=== PATIENT | male | born 1995 | race Caucasian/White ===

== ENCOUNTER 2023-10-16 00:04 | Day surgery (SDC) | payer BC, OTHER ==
[2023-10-16] MEDS: Sodium Chloride 0.9% 1,000 ML IV STA (00:45)
[2023-10-16] MEDS: Sodium Chloride 0.9% 10 ML Syringe FLUSH PRN (00:46)
[2023-10-16 00:49] LABS: BASOPHILS PERCENT AUTO 0.5 % (0.0-1.0); EOSINOPHILS PERCENT AUTO 0.5 % (0.0-6.0); HEMATOCRIT 45.5 % (42.0-52.0); IMMATURE GRAN ABSOLUTE AUTO 0.01 K/mm3 (0.00-0.05); IMMATURE GRAN PERCENT AUTO 0.1 % (0.0-0.4); LYMPHOCYTES ABSOLUTE AUTO 0.8 K/mm3 (1.0-4.8); LYMPHOCYTES PERCENT AUTO 9.3 % (24.0-44.0); MEAN CORPUSCULAR HGB CONC 35.2 g/dl (32.0-36.0); MEAN CORPUSCULAR VOLUME 88.2 fl (83.0-99.0); MEAN PLATELET VOLUME 8.9 fl (9.4-12.4); MONOCYTES ABSOLUTE AUTO 0.6 K/mm3 (0.0-0.8); MONOCYTES PERCENT AUTO 7.3 % (0.0-8.0); NEUTROPHILS ABSOLUTE AUTO 6.8 K/mm3 (1.8-7.7); NEUTROPHILS PERCENT AUTO 82.3 % (41.0-71.0); PLATELET COUNT,PLT 155 K/mm3 (150-400); RED BLOOD CELL COUNT 5.16 M/mm3 (4.52-5.90); WHITE BLOOD CELL COUNT,WBC 8.24 K/mm3 (3.9-11.3)
[2023-10-16] MEDS: Sodium Chloride 0.9% 10 ML Syringe FLUSH ONE (01:01)
[2023-10-16] MEDS: Iopamidol 612 MG/ML 100 ML Bottle IVPUSH ONE (01:01)
[2023-10-16 01:10] LABS: A/G RATIO 1.2 (1-2); ANION GAP 13.4 (5-15); BILIRUBIN TOTAL 0.8 mg/dL (0.2-1.0); BUN/CREATININE RATIO 8.5 (14-18); C-REACTIVE PROTEIN 0.79 mg/dL (<0.30); CREATININE 1.3 mg/dL (0.7-1.3); EST CRCL DRUG DOSING (CG) 88.55 mL/min; POTASSIUM,K 3.4 mEq/L (3.5-5.1); PROTEIN TOTAL,TP 7.4 g/dl (6.4-8.2)
[2023-10-16] MEDS: Piperacillin/Tazobactam 4.5 GM in Sodium Chloride 0.9% 100 ML IV ONE (02:09)
[2023-10-16 02:57] LABS: APPEARANCE,URINE CLEAR (Clear); BILIRUBIN,URINE NEGATIVE (Negative); COLOR,URINE LIGHT YELLOW (Yellow); GLUCOSE,URINE NEGATIVE (Negative); KETONES,URINE 1+ (Negative); LEUKOCYTE ESTERASE,URINE NEGATIVE (Negative); NITRITE,URINE NEGATIVE (Negative); OCCULT BLOOD,URINE NEGATIVE (Negative); PH,URINE 7.5 (5.0-8.0); PROTEIN,URINE NEGATIVE (Negative)
[2023-10-16 03:10] LABS: BACTERIA,URINE RARE /hpf (FEW); EPITHELIAL CELLS,URINE 0-5 /hpf (0-5); MUCUS,URINE NOT SEEN /hpf (FEW); RBC,URINE NOT SEEN /hpf (0-5); WBC,URINE 0-5 /hpf (0-5)
[2023-10-16] MEDS ORDERED: Lidocaine 1% 6 ML ONE (09:35)
[2023-10-16] MEDS ORDERED: Rocuronium 50 MG/5 ML Vial ONE (09:35)
[2023-10-16] MEDS ORDERED: Ondansetron 4 MG/2 ML SDV ONE (09:35)
[2023-10-16] MEDS ORDERED: Succinylcholine 200 MG/10 ML MDV ONE (09:35)
[2023-10-16] MEDS ORDERED: Midazolam 1 MG/ML 2 ML SDV ONE (09:36)
[2023-10-16] MEDS ORDERED: Propofol 200 MG/20 ML SDV ONE (09:36)
[2023-10-16] MEDS ORDERED: fentaNYL 250 MCG/5 ML SDV ONE (09:36)
[2023-10-16] MEDS: Acetaminophen 325 MG Tab PO STA (09:46)
[2023-10-16] MEDS ORDERED: ceFAZolin 2 GM Vial ONE (10:00)
[2023-10-16] MEDS ORDERED: Lactated Ringers 1,000 ML ONE ×2 (10:14→10:39)
[2023-10-16] MEDS ORDERED: HYDROmorphone 0.5 MG/0.5 ML Syringe IVPUSH PRN (10:18)
[2023-10-16] MEDS ORDERED: fentaNYL 100 MCG/2 ML SDV IVPUSH PRN (10:18)
[2023-10-16] MEDS: EPINEPHrine 1 MG/ML SDV ONE (10:45)
[2023-10-16] MEDS: Bupivacaine 0.5% 30 ML SDV ONE (10:45)
[2023-10-16] MEDS: Lidocaine 1% 30 ML SDV ONE (10:45)
[2023-10-16] MEDS ORDERED: Sugammadex Sodium 200 MG/2 ML VIAL IV ONE (10:55)
[2023-10-16] MEDS ORDERED: dexmedeTOMIDine HCl 200 MCG/2 ML SDV ONE (11:35)
== END 2023-10-16 12:30 | disposition home or self-care (01) ==
LOC: JD.ED 00:04 → JD.SDS 08:48
PROVIDERS: ATTEND Student in an Organized Health Care Education/Training Program
DX: K35.33 Acute appendicitis with perforation, localized peritonitis, and gangrene, with abscess (principal)
CPT/HCPCS: 36415; 44970; 74177; 80053; 81001; 83690; 85025; 86140; 96361; 96365; 99285; A9270; J0171; J0330; J0665; J0690; J2250; J2405; J2543; J2704; J3010; J3490; J7030; J7120; Q9967; 00840